=== PATIENT | male | born 1975 | race Caucasian/White ===

== ENCOUNTER 2019-04-05 17:23 | Emergency (ER) | payer OTHER | END 2019-04-05 20:35 | disposition other institution (70) | LOC: ED 17:23 | DX: Z02.89 Encounter for other administrative examinations (principal) ==

== ENCOUNTER 2019-04-05 17:23 | Emergency (ER) | payer OTHER ==
[~2019-04-05] VITALS: Ht 180.3 cm; Wt 86.2 kg
[2019-04-05 17:52] VITALS: Ht 180.3 cm; Wt 86.2 kg
[2019-04-05 20:35] VITALS: BP 127/77
== END 2019-04-05 20:35 | disposition other institution (70) ==
LOC: ED 17:23
DX: S01.111A Laceration without foreign body of right eyelid and periocular area, initial encounter (principal); W22.8XXA Striking against or struck by other objects, initial encounter; Y93.89 Activity, other specified; Y92.89 Other specified places as the place of occurrence of the external cause; Y99.8 Other external cause status
CPT/HCPCS: J2001